=== PATIENT | female | born 1935 | race Caucasian/White ===

== ENCOUNTER 2016-12-16 12:05 | Emergency (ER) | payer OTHER ==
[~2016-12-16 12:05] MED LIST: ACCUNEB INH; ADVIL PO; ALBUTEROL; ALEVE220 MG PO; ASAB PO; ATRONASAL3 NAS; ATROVENT; ATROVENTUD INH; BUDEPRION150 MG PO; CALTRA600D PO; CEFT5 PO; COSAMIN DS1 TAB PO; COUMADIN3 MG; DUONEB INH; FLONASE NAS; HYDROCODONE-APAP PO; I40 PO; IPRA17AE INH; KLOR-CON 1010 MEQ PO; LIPITOR40 PO; LIPITOR80 MG PO; LOPID6 PO; LORTAB10 PO; LYRICA75 PO; MEGA D3 PO; MOBIC7.5 PO; MULTIPLE VIT PO; NITROQUICK0.4 MG SL; OS250 PO; P10 PO; PCET PO; PREDNISONE; PRILO PO; PRIM250 PO; PRIN10 PO; PROVENTIL; PROVENTSOL INH; PROVHFA INH; SPIRIVA INH; STOOL SOFTEN100 MG PO; SYMBICORT 160/41 INH INH; VITAMIN B-121000 MC1 SL; ZITH250 PO; [UNRECOGNIZED DRUG - OTHER]; [UNRECOGNIZED DRUG - OTHER] INH; [UNRECOGNIZED DRUG - OTHER] PO
== END 2016-12-16 14:20 | disposition home or self-care (01) ==
LOC: ER 12:05
DX: S93.401A Sprain of unspecified ligament of right ankle, initial encounter (principal); S93.601A Unspecified sprain of right foot, initial encounter; I10 Essential (primary) hypertension; Z95.0 Presence of cardiac pacemaker; Z95.1 Presence of aortocoronary bypass graft; Z88.2 Allergy status to sulfonamides; Z79.82 Long term (current) use of aspirin; Z79.899 Other long term (current) drug therapy; W01.0XXA Fall on same level from slipping, tripping and stumbling without subsequent striking against object, initial encounter
CPT/HCPCS: 70450; 73610-RT; 73630-RT; 99284; A9270-GY